=== PATIENT | female | born 1940 | race Caucasian/White ===

== ENCOUNTER 2018-02-07 14:14 | Inpatient (IN) | payer OTHER, BC ==
[~2018-02-07] VITALS: Ht 162.6 cm; Wt 78.5 kg
[2018-02-07 16:37] VITALS: BP 123/52
[2018-02-07] MEDS ORDERED: ASPIRIN81 M2 PO (19:52)
[2018-02-07] MEDS ORDERED: CELEXA20 MG PO (19:53)
[2018-02-07] MEDS ORDERED: HYDROCHLOROTHIA25 M2 PO (19:54)
[2018-02-07] MEDS ORDERED: COZAAR 25 MG TA25 M1 PO (19:59)
[2018-02-07] MEDS ORDERED: LOVASTATIN 20 M20 MG PO (20:00)
[2018-02-07] MEDS ORDERED: OMEPRAZOLE 20 M20 M1 PO (20:01)
[2018-02-08] VITALS (8 sets, daily range): BP systolic 105–124; BP diastolic 46–59
[2018-02-08 04:36] LABS: INR 1.3; PROTIME 13.9 Seconds (9.3-11.4)
[2018-02-08 04:48] LABS: CALCIUM 8.4 mg/dL (8.5-10.1); POTASSIUM 3.6 mmol/L (3.5-5.1)
[2018-02-08 04:55] LABS: HEMATOCRIT 35.6 % (37.0-47.0); HEMOGLOBIN 11.5 gm/dL (12.0-15.0); MCH 29.9 pg (26.0-34.0); MCHC 32.3 g/dL (28.0-37.0); MCV 92.4 fL (80.0-100.0); RBC 3.85 mil/uL (4.20-5.00); RDW 13.4 % (10.5-14.5); WBC 18.3 thou/uL (4.0-11.0)
[2018-02-09 04:53] VITALS: BP 129/48
[2018-02-09 06:00] LABS: ABSOLUTE NEUTROPHILS 16.2 thou/uL (1.4-8.2); BASOPHILS 0.1 % (0.0-2.0); HEMATOCRIT 36.8 % (37.0-47.0); HEMOGLOBIN 12.1 gm/dL (12.0-15.0); LYMPHOCYTES 8.3 % (24.0-44.0); MCH 30.6 pg (26.0-34.0); MCV 92.8 fL (80.0-100.0); PLATELET COUNT 335 thou/uL (150-400); POLYS 85.6 % (36.0-66.0); RBC 3.97 mil/uL (4.20-5.00); RDW 13.7 % (10.5-14.5)
[2018-02-09 06:18] LABS: ALBUMIN 2.7 g/dL (3.4-5.0); CALCIUM 8.6 mg/dL (8.5-10.1); CREATININE 0.9 mg/dL (0.6-1.0); MAGNESIUM 1.8 mg/dL (1.8-2.4); POTASSIUM 3.6 mmol/L (3.5-5.1); TOTAL BILIRUBIN 0.4 mg/dL (<0.1-1.0); TOTAL PROTEIN 6.9 g/dL (6.4-8.2)
[2018-02-09 08:31] VITALS: BP 130/54
[2018-02-09] MEDS ORDERED: NORCO 5-325 TA1 EACH PO (13:59)
[2018-02-09 14:24] VITALS: BP 139/54
--- NOTE | 2018-02-13 11:07 | PATH ---
[facility] [address] [place] [address] PATHOLOGY RPT PROCEDURE Name: SHAMA DUBOSE Room #: 456-P [facility] .R.#: [id number] Admission: 02/07/18 Date of : 44 Discharge: 02/09/18 Report #: [id number] Path Case #: [id number] [facility] Accession Number: [id number] . 01 Material submitted: . APPENDIX . 01 Clinical history: . Acute appendicitis . 02 Diagnosis: Appendix "appendix", appendectomy: - Acute suppurative appendicitis with acute inflammation extending into the periappendiceal fat with micro abscess formation. (SHA:pit 02/10/2018) QTP/02/10/2018 . 02 Electronically signed: . Jamir Benson MD, Pathologist NPI- [id number] . 01 Gross description: . The specimen is received in formalin, labeled "Shama Dubose, appendix". Received is a vermiform appendix measuring 6.4 cm in length by up to 1.1 cm in diameter with a small amount of attached mesoappendix. The serosal surface is evans-bhatt and shaggy in appearance. Sectioning reveals a patent to dilated lumen filled with light bhatt possible fecal material. The specimen is submitted representatively in cassettes A1 and A2, with the proximal margin and bisected tips submitted in cassette A1. (CAA; 02/09/2018) QAC/QAC . 02 Pathologist provided ICD-10: K35.80 . 02 CPT . 381777 Specimen Comment: A courtesy copy of this report has been sent to Specimen Comment: [phone], , . Specimen Comment: Report sent to ,DR RUFF / DR SUMMERS Specimen Comment: A duplicate report has been generated due to demographic updates. Performed at: [address] [id number] MD Aamir Graham MD Phone: [phone] Performed at: 02 [place] [address] PATHOLOGY RPT PROCEDURE Name: DUBOSESHAMA Room #: 456-P [facility] IN M.R.#: [id number] Admission: 02/07/18 Date of : 44 Discharge: 02/09/18 Report #: [id number] Path Case #: [id number] [facility] [address], [place], [place] [id number] MD Alona Lara MD Phone: [phone]
== END 2018-02-09 15:30 | disposition home or self-care (01) | DRG 853 ==
LOC: 4W 14:14 → ENTRNSPT 02-09 15:05 → EDTRNSPTSTS 02-09 15:07 → 4W 02-09 15:30
PROVIDERS: Nurse Practitioner Family; Surgery; ADMIT Internal Medicine
PROC: 0DTJ4ZZ Resection of Appendix, Percutaneous Endoscopic Approach (ICD-10-PCS; principal; 2018-02-08)
DX: A41.9 Sepsis, unspecified organism (principal); E43 Unspecified severe protein-calorie malnutrition; K35.80 Unspecified acute appendicitis; E78.5 Hyperlipidemia, unspecified; K21.9 Gastro-esophageal reflux disease without esophagitis; I11.0 Hypertensive heart disease with heart failure; I50.9 Heart failure, unspecified; M19.90 Unspecified osteoarthritis, unspecified site; F32.9 Major depressive disorder, single episode, unspecified; G47.33 Obstructive sleep apnea (adult) (pediatric); Z84.1 Family history of disorders of kidney and ureter; Z79.82 Long term (current) use of aspirin; Z79.899 Other long term (current) drug therapy; Z68.29 Body mass index [BMI] 29.0-29.9, adult
CPT/HCPCS: 10047; 50010; 50101; 50249; 50411; 50555; 50558; 50739; 50740; 51489; 51975; 53307; 53310; 54022; 54118; 56462; 56525; 56526; 56639; 62110; 62900; 65129; 65130; 70005

== ENCOUNTER → 2019-07-23 | Outpatient (CLI) | payer OTHER, BC ==
[~2019-07-23] MED LIST: ASPIRIN81 M2 PO; CELEXA20 MG PO; COZAAR 25 MG TA25 M1 PO; HYDROCHLOROTHIA25 M2 PO; LOVASTATIN 20 M20 MG PO; NORCO 5-325 TA1 EACH PO; OMEPRAZOLE 20 M20 M1 PO
== END ==
LOC: SJCVC 13:38
PROVIDERS: ATTEND Internal Medicine Cardiovascular Disease
DX: R94.31 Abnormal electrocardiogram [ECG] [EKG] (principal); I10 Essential (primary) hypertension; R06.00 Dyspnea, unspecified; M79.89 Other specified soft tissue disorders; E78.00 Pure hypercholesterolemia, unspecified; K21.9 Gastro-esophageal reflux disease without esophagitis; Z79.82 Long term (current) use of aspirin; Z79.899 Other long term (current) drug therapy

== ENCOUNTER → 2019-09-03 | Outpatient (CLI) | payer OTHER, BC | LOC: SJCVCIMAG 10:58 | PROVIDERS: ATTEND Internal Medicine Cardiovascular Disease | DX: I08.8 Other rheumatic multiple valve diseases (principal); I11.9 Hypertensive heart disease without heart failure; E78.00 Pure hypercholesterolemia, unspecified; Z79.899 Other long term (current) drug therapy ==

== ENCOUNTER → 2019-11-22 | Outpatient (CLI) | payer OTHER, BC | LOC: SJCVC 13:08 | PROVIDERS: ATTEND Internal Medicine Cardiovascular Disease | DX: R00.1 Bradycardia, unspecified (principal); R07.9 Chest pain, unspecified; R06.00 Dyspnea, unspecified; I35.1 Nonrheumatic aortic (valve) insufficiency; I10 Essential (primary) hypertension; K21.9 Gastro-esophageal reflux disease without esophagitis ==

== ENCOUNTER → 2019-11-29 | Outpatient (CLI) | payer OTHER, BC | LOC: SJCVCIMAG 09:18 | PROVIDERS: ATTEND Internal Medicine Cardiovascular Disease | DX: R07.9 Chest pain, unspecified (principal); R06.00 Dyspnea, unspecified; I35.1 Nonrheumatic aortic (valve) insufficiency; I10 Essential (primary) hypertension; Z79.899 Other long term (current) drug therapy ==